=== PATIENT | male | born 1940 | race Caucasian/White ===

== ENCOUNTER → 2017-09-12 | Outpatient (CLI) | payer MEDICARE ==
[~2017-09-12] MED LIST: OXYBUTYNIN5 MG PO
[2017-09-12 08:52] LABS: LYMPH # 1.8 K/mm3 (0.7-4.5); LYMPH % 18.9 % (10-50)
[2017-09-12 09:04] LABS: BUN 26 mg/dL (7-18); GFR (ESTIMATED) 54 ML/MIN (>60)
--- NOTE | 2017-09-14 06:14 | RADIOLOGY REPORT PS360 ---
CT CHEST W/ CONTRAST INDICATION: Rectal cancer workup, evaluate for metastatic disease RECTAL CANCER ORDERING PHYSICIAN: Ben Ortega MD PATIENT AGE: 77 years COMPARISON: 03/10/2009 TECHNIQUE: Axial images are obtained following intravenous administration of 75 mL's of Isovue-370 contrast. Sagittal and coronal reformatted images are reviewed as well. FINDINGS: There are centrilobular emphysematous changes. Normal heart size. No evidence of pericardial effusion. No mediastinal or hilar mass. Numerous noncalcified bilateral pulmonary nodules are present consistent with diffuse pulmonary metastasis. The nodules range in size from a few millimeters up to 14 mm on the right and 17 x 23 mm on the left. There are small bilateral pleural effusions. Nodules are mostly peripheral. No evidence of aneurysm or central pulmonary embolus. No bony destructive process evident. IMPRESSION: 1. Diffuse pulmonary metastasis. 2. Small bilateral pleural effusions
--- NOTE | 2017-09-16 11:58 | RADIOLOGY REPORT PS360 ---
CT ABD PELVIS W/ CONTRAST HISTORY: RECTAL CANCER Patient Age: 77 years: Male Ordering Physician: Ben Ortega MD TECHNIQUE: Helical CT scanning performed the abdomen and pelvis with study 75 cc Isovue-370. It. Sagittal coronal reconstruction CT workstation COMPARISON :Awaiting [facility] outside image CAD. Prior [facility] CT report from August 21 available FINDINGS LUNG BASES. Small bilateral pleural effusions. Multiple metastatic deposits lung bases bilaterally. Warrant follow-up CT chest. These were reported on recent CT. RIGHT LUNG base.: 12 mm nodule likely metastatic lesion at RLL axial slice 5 . 8 mm nodule just above right hemidiaphragm RLL axial slice 3. LEFT LUNG base: More numerous nodules left lung base. 17 x 11 mm nodule at lingula just overlying left heart border. 11.5 mm LLL nodule just lateral to this on same axial slice #3. Multiple additional less than 12 mm nodules, left lung base above left hemidiaphragm LIVER. 2 dominant Metastatic deposits the liver:. . There is a 4.2 cm low-density lesion left lobe of liver again noted r. Another 2.9 cm height X 2.8 cm lesion anterior right lobe liver coronal image 34 Other tiny hepatic cyst noted PANCREAS unremarkable. GALLBLADDER. No gallstones. KIDNEYS. Benign renal cysts at posterior right kidney & anterior left kidney these latter areas. Only slight progression since 2014. Less than 3 mm calculus midportion right kidney . COLOSTOMY LLQ.. Requires correlation but Appears to be a loop colostomy prominent stool is seen at the right acsending colon currently. Also some residual stool throughout the left descending colon evident. Pelvis. Extensive Postsurgical changes . Appears to be Martins's pouch formation Fluid surrounds thicken rectal stump and continuing to slightly above this. Fluid in density throughout the presacral space on sagittal image 51. Small thickened residual urinary bladder noted. Anterior to the bladder there is a a large amorphous region. Appears to be postsurgical area of bowel with possibly anastomosis. It contains contain what appears to be liquid stool containing enteric contrast within it this region supporting this related to bowel loops postsurgical changes along its posterior aspect. Possible anastomosis of this relatively dilated area of bowel.. This resides anterior to the bladder/just above the level the pubis. This region measures up to 8 cm transverse 7 cm in AP... Requires comparison to prior studies and clinical correlation... Note Also note similar unusual clumping of small bowel midline anteriorly which appears to be associated with additional suspect soft tissue nodules involving the abdominal wall at midline & along the posterior margin of rectus. Axial image 57. This requires correlation to the prior studies as well. On these images-I am suspect of additional soft tissue nodules at and along posterior abdominal wall.-Spanning nearly 3.5 cm length x 1.7 cm AP. As seen on sagittal image 55. Overlying induration subcutaneous region at prior midline incision. This too requires correlation of prior studies Borderline dilated loops of small bowel most evident left upper quadrant. Generous fluid throughout the majority of small bowel loops Urostomy RLQ; with RLQ ileal conduit formation leading to it. The delayed postcontrast images show no contrast within the igiugig urinary bladder but rather we see the ureters leading to this RLQ ileal conduit on which continues towards the right RLQ urostomy bag Other abdominal findings.: 12 mm soft tissue nodule left upper abdomen anterior to spleen-suspect merely splenosis, unchanged since 2014.. Axial image 25 Small 14 mm soft tissue nodule within abdominal wall at midline likely at superior margin of midline incision.. There is also 2.3 irregular soft tissue density or possibly a large node inferior mesentery (axial image 54 coronal 34).. Left adrenal nodule 14.6 mm size unchanged 2013 No discrete osseous metastatic lesions. Degenerative disc changes most evident L4/5. . IMPRESSION: 1. Liver and lung metastatic disease . Awaiting prior 07/2017 [facility] CT for comparison 2. Colostomy LLQ. 3. RLQ Ileal Conduit and Urostomy 4. Extensive postsurgical/& post therapy changes pelvis. . ... Fluid surrounds thickened rectal stump,. Edema/fluid throughout presacral space. Small thickened remnant nonfunctioning bladder. ... Anterior/superior to bladder there is likely 8mm diameter ectatic dilated bowel segment/suspect related to an area of bowel anastomosis. Contains liquid stool like material with dense enteric contrast. 5. Suggestion developing soft tissue nodules along midline abdominal wall & posterior aspect midline incision. Requires correlation clinically and to previous studies Also 12 mm soft tissue nodule superior margin of the midline incision... . .
== END ==
LOC: RAD 08:30 → LAB 08:30 → RAD 09:00
PROVIDERS: Internal Medicine
DX: C20 Malignant neoplasm of rectum (principal); Z03.89 Encounter for observation for other suspected diseases and conditions ruled out
CPT/HCPCS: Q9967

== ENCOUNTER 2017-10-02 08:50 | Outpatient (CLI) | payer MEDICARE ==
[~2017-10-02] VITALS: Ht 177.8 cm; Wt 87.5 kg
[2017-10-02] VITALS (13 sets, daily range): BP systolic 118–142; BP diastolic 68–84
[2017-10-02 09:49] LABS: LYMPH # 1.6 K/mm3 (0.7-4.5); LYMPH % 13.5 % (10-50)
[2017-10-02 09:58] LABS: URINE BILIRUBIN - DIPSTICK NEGATIVE (NEG); URINE BLOOD TRACE-INTACT (NEG)
[2017-10-02 09:59] LABS: BUN 26 mg/dL (7-18); GFR (ESTIMATED) 39 ML/MIN (>60)
[2017-10-02 10:06] LABS: URINE SQUAMOUS CELLS OCC #/hpf (OCC)
[2017-10-02] MEDS ORDERED: TYLENOL ES500 MG PO (15:05)
== END 2017-10-02 16:30 | disposition home or self-care (01) ==
LOC: COP 08:50
PROVIDERS: Internal Medicine
DX: C20 Malignant neoplasm of rectum (principal); C78.7 Secondary malignant neoplasm of liver and intrahepatic bile duct; C78.00 Secondary malignant neoplasm of unspecified lung; R82.90 Unspecified abnormal findings in urine
CPT/HCPCS: J1642; J9035; J9263; Q0166

== ENCOUNTER 2017-11-10 09:20 | Outpatient (CLI) | payer MEDICARE ==
[~2017-11-10] VITALS: Ht 177.8 cm; Wt 85.3 kg
[2017-11-10] VITALS (10 sets, daily range): BP systolic 134–151; BP diastolic 67–85
[~2017-11-10 09:20] MED LIST changes: +IMODIUM A-D2 M3 PO; +TYLENOL ES500 MG PO
[2017-11-10 09:40] LABS: URINE BILIRUBIN - DIPSTICK NEGATIVE (NEG); URINE BLOOD TRACE-INTACT (NEG)
[2017-11-10 09:41] LABS: HEMOGLOBIN 11.5 g/dL (14.1-18.0); LYMPH # 1.6 K/mm3 (0.7-4.5); LYMPH % 22.9 % (10-50)
[2017-11-10 10:27] LABS: BUN 18 mg/dL (7-18); GFR (ESTIMATED) 49 ML/MIN (>60)
== END 2017-11-10 16:20 | disposition home or self-care (01) ==
LOC: COP 09:20
PROVIDERS: Internal Medicine
DX: C18.9 Malignant neoplasm of colon, unspecified (principal); Z51.11 Encounter for antineoplastic chemotherapy; R82.90 Unspecified abnormal findings in urine
CPT/HCPCS: J1642; J2405; J9035; J9263; Q0166